=== PATIENT | female | born 1980 | race Caucasian/White ===

== ENCOUNTER → 2021-01-14 | Day surgery (SDC) | payer OTHER ==
[~2021-01-14] MED LIST: DAILY VALUE1 EACH PO; HYDROCODONE-AC1 EACH PO; IBUPROFEN600 MG PO
[2021-01-14 07:53] LABS: HEMOGLOBIN 10.7 gm/dl (12.3-15.3); RED BLOOD COUNT 4.63 M/UL (4.00-5.10); WHITE BLOOD COUNT 8.2 K/UL (4.5-11.0)
== END | disposition home or self-care (01) ==
LOC: OR 06:39
PROVIDERS: Obstetrics & Gynecology
DX: D06.9 Carcinoma in situ of cervix, unspecified (principal); N81.3 Complete uterovaginal prolapse; D25.1 Intramural leiomyoma of uterus; K21.9 Gastro-esophageal reflux disease without esophagitis; F41.9 Anxiety disorder, unspecified; Z79.899 Other long term (current) drug therapy; Z88.8 Allergy status to other drugs, medicaments and biological substances; Z20.822 Contact with and (suspected) exposure to COVID-19; Z80.0 Family history of malignant neoplasm of digestive organs
CPT/HCPCS: 81001; 84702; 85025; 93005; J1100; J1885; J2001; J2250; J2405; J2704; J3010; J7120; U0002

== ENCOUNTER → 2021-03-31 | Outpatient (CLI) | payer OTHER ==
[2021-03-31 10:17] LABS: RED BLOOD COUNT 4.31 M/UL (4.00-5.10); WHITE BLOOD COUNT 3.8 K/UL (4.5-11.0)
== END ==
LOC: OPSV2 09:00
PROVIDERS: Obstetrics & Gynecology
DX: Z01.818 Encounter for other preprocedural examination (principal); N81.4 Uterovaginal prolapse, unspecified
CPT/HCPCS: 36415; 81001; 85025; 93005

== ENCOUNTER → 2021-04-02 | Day surgery (SDC) | payer OTHER | END | disposition home or self-care (01) | LOC: OR 09:29 → EDSTATUS 09:30 → OR 13:00 | DX: N81.3 Complete uterovaginal prolapse (principal); N92.0 Excessive and frequent menstruation with regular cycle; U07.1 COVID-19; Z91.013 Allergy to seafood; Z53.8 Procedure and treatment not carried out for other reasons | CPT/HCPCS: 36415; 84702; U0002 ==

== ENCOUNTER → 2021-06-19 | Outpatient (CLI) | payer OTHER ==
[2021-06-19 10:22] LABS: RED BLOOD COUNT 4.63 M/UL (4.00-5.10); WHITE BLOOD COUNT 6.2 K/UL (4.5-11.0)
== END ==
LOC: OPSV2 09:00
PROVIDERS: Obstetrics & Gynecology
DX: Z01.818 Encounter for other preprocedural examination (principal); D25.1 Intramural leiomyoma of uterus
CPT/HCPCS: 81001; 85025; 93005

== ENCOUNTER → 2021-06-25 | Day surgery (SDC) | payer OTHER ==
[~2021-06-25] MED LIST changes: +B12 ACTIVE1000 MCG PO; +DOCUSATE SODIU250 MG PO; +IRON325 M1 PO; +MULTI-VITAMIN1 EACH PO
== END | disposition home or self-care (01) ==
LOC: OR 09:23
DX: N81.3 Complete uterovaginal prolapse (principal); N72 Inflammatory disease of cervix uteri; D25.1 Intramural leiomyoma of uterus; N93.9 Abnormal uterine and vaginal bleeding, unspecified; N92.0 Excessive and frequent menstruation with regular cycle; Z91.013 Allergy to seafood; Z79.899 Other long term (current) drug therapy
CPT/HCPCS: 84702; C1769; J0690; J1100; J1885; J2001; J2250; J2370; J2405; J2704; J3010; J7050; J7120